=== PATIENT | female | born 1955 | race Caucasian/White ===

== ENCOUNTER 2019-11-16 16:27 | Emergency (ER) | payer MEDICARE, MEDICAID ==
[~2019-11-16 16:27] MED LIST: ACIPHEX20 MG PO; AUGMENTIN875TAB PO; BACTRIM DS1 TAB PO; CARAFATE PO; CEPHALEXIN500 MG PO; DICLOFENAC75 MG PO; ESTRADIOL0.1 MG TD; ESTRADIOL1 MG PO; FLEXERIL PO; FLONASE NASAL50 MCG; FLUOXETINE10 MG PO; FLUOXETINE20 MG PO; MEDDOSEPAK PO; NEXIUM40 M1 PO; PRAVASTATIN SOD40 MG PO; PREDNISONE10 MG PO; PREDNISONE20 MG PO; PRILOSEC40 MG PO; ROBITUSSIN AC10 ML PO; ZOVIRAX400 MG PO; ZOVIRAX800 MG PO
== END 2019-11-16 17:10 | disposition left against medical advice (07) ==
LOC: ED 16:27 → LWOBS 17:10
DX: Z53.21 Procedure and treatment not carried out due to patient leaving prior to being seen by health care provider (principal)

== ENCOUNTER 2021-04-16 09:03 | Emergency (ER) | payer MEDICARE, MEDICAID ==
[~2021-04-16] VITALS: Ht 172.7 cm; Wt 90.0 kg
[2021-04-16 10:02] LABS: HEMATOCRIT 30.2 % (37.0-47.0); HEMOGLOBIN 9.9 g/dl (12.0-16.0); IMMATURE GRANULOCYTES 0.6 % (0.0-5.0); MEAN CELL VOLUME 88.6 fL CALC (80.0-100.0); MEAN CORPUSCULAR HGB CONC 32.8 g/dL CAL (32.0-36.0); NEUT# 6.97 thou/uL (2.00-7.15); RED BLOOD COUNT 3.41 mill/uL (4.20-5.60); RED CELL DISTRI WIDTH 14.4 % (11.5-15.5)
[2021-04-16 10:24] LABS: ALBUMIN 4.3 g/dL (3.2-5.0); ALKALINE PHOSPHATASE 119 u/l (38-126); ANION GAP 12 (6-22 (CALC)); BUN 21 mg/dL (8-23); BUN/CREATININE RATIO 24 (12-20 (CALC)); CARBON DIOXIDE 29 mmol/l (22-30); CHLORIDE 102 mmol/l (95-108); CREATININE 0.9 mg/dL (0.5-1.0); GFR > 60 ML/MIN (>=60 (CALC)); GFR FOR AFR.AMER. > 60 ML/MIN (>=60 (CALC)); LIPASE 94 u/l (23-300); POTASSIUM 4.1 mmol/l (3.5-5.1); SGOT/AST 27 u/l (9-36); SODIUM 139 mmol/l (137-146)
[2021-04-16 10:27] LABS: BILIRUBIN, TOTAL 0.6 mg/dL (0.0-1.4); TOTAL PROTEIN 7.7 g/dL (6.3-8.2)
[2021-04-16 13:40] VITALS: BP 118/56
== END 2021-04-16 13:50 | disposition home or self-care (01) ==
LOC: ED 09:03
DX: R07.9 Chest pain, unspecified (principal); I10 Essential (primary) hypertension; E78.2 Mixed hyperlipidemia; E66.9 Obesity, unspecified; Z68.30 Body mass index [BMI] 30.0-30.9, adult